=== PATIENT | female | born 1990 | race African-American/Black ===

== ENCOUNTER 2019-05-17 23:31 | Inpatient (IN) | payer MEDICAID, OTHER ==
[2019-05-17] MEDS ORDERED: PENICILLIN G-K 5 MILLION UNIT VIAL ONE (23:37)
[2019-05-17] MEDS ORDERED: RINGERS SOLUTION,LACTATED 1,000 ML IV PRN (23:39)
--- NOTE | 2019-05-17 23:57 | Admission Physical ---
Datetime Report Generated by CPN: 05/17/2019 23:56 CURRENT ADMISSION Chief Complaint: Uterine Contractions Indication for Induction: Not Applicable Admit Impression : Term, Intrauterine Admit Plan: Initiate Labor Protocol ALLERGIES Medication Allergies: No Known Allergies (12/29/2015) OBSTETRICAL HISTORY EDC: 05/23/2019 00:00 PHYSICAL EXAM General: Normal HEENT: Normal Neurologic: Normal Thyroid: Normal Heart: Normal Lungs: Normal Breast: Deferred Back: Normal Abdomen: Normal Genitourinary Exam: Normal Extremities: Normal DTRs: Normal Pelvic Type: Adequate FETUS A EGA: 39.1 INFORMED CONSENT Signature: with User ID: [email or web address]
[2019-05-17] MEDS ORDERED: PENICILLIN G POTASSIUM 5,000,000 UNIT in DEXTROSE 5%-WATER 100 ML IV ONE (23:59)
[2019-05-18] MEDS ORDERED: ACETAMINOPHEN WITH CODEINE #3 TABLET PO PRN (00:06)
[2019-05-18] MEDS ORDERED: ZOLPIDEM TARTRATE 5 MG TABLET PO PRN ×2 (00:06→00:07)
[2019-05-18] MEDS ORDERED: DIBUCAINE 1% OINTMENT 56 GM TP PRN ×2 (00:06→00:07)
[2019-05-18] MEDS ORDERED: BENZOCAINE/MENTHOL AEROSOL SPRAY 56 ML TOP PRN ×2 (00:06→00:07)
[2019-05-18] MEDS ORDERED: OXYTOCIN/NORMAL SALINE 20 UNIT/1,000 ML RTUINJ IV PRN ×2 (00:06→00:07)
[2019-05-18] MEDS ORDERED: MEASLES,MUMPS&RUBELLA VACC/PF 0.5 ML VIAL SUBCUT PRN ×2 (00:06→00:07)
[2019-05-18] MEDS ORDERED: DIPH/PERTUSS(ACELL)/TETANUS VAC/PF 0.5 ML SYR (>=10YO) IM PRN ×2 (00:06→00:07)
[2019-05-18] MEDS ORDERED: ACETAMINOPHEN 650 MG SUPP.RECT PR PRN (00:07)
[2019-05-18] MEDS ORDERED: MAGNESIUM HYDROXIDE SUSP 30 ML UDCUP PO PRN (00:07)
[2019-05-18] MEDS ORDERED: PROMETHAZINE HCL 25 MG TABLET PO PRN (00:07)
[2019-05-18] MEDS ORDERED: NA PHOS,M-B/NA PHOS,DI-BA (ADULT) 133 ML ENEMA PR PRN (00:07)
[2019-05-18] MEDS ORDERED: PSEUDOEPHEDRINE HCL 30 MG TABLET PO PRN (00:07)
[2019-05-18] MEDS ORDERED: GLYCERIN/WITCH HAZEL LEAF 1 EACH MED..WIPE TP PRN (00:07)
[2019-05-18] MEDS ORDERED: DIPHENHYDRAMINE HCL 25 MG CAPSULE PO PRN (00:07)
[2019-05-18] MEDS ORDERED: PROMETHAZINE HCL 25 MG SUPP.RECT PR PRN (00:07)
[2019-05-18] MEDS ORDERED: PROMETHAZINE HCL INJ 25 MG/1 ML VIAL IV PRN (00:07)
[2019-05-18] MEDS ORDERED: IBUPROFEN 800 MG TABLET ONE (00:15)
[2019-05-18] MEDS: ACETAMINOPHEN WITH CODEINE #3 TABLET PO PRN (01:00)
[2019-05-18] MEDS ORDERED: ACETAMINOPHEN WITH CODEINE #3 TABLET ONE (01:11)
[2019-05-18 01:15] LABS: ABSOLUTE EOSINOPHILS # (AUTO) 0.1 10^3/uL (0.0-0.6); ABSOLUTE LYMPHOCYTES (AUTO) 1.3 10^3/uL (0.5-4.7); ABSOLUTE MONOCYTES (AUTO) 0.7 10^3/uL (0.1-1.4); ABSOLUTE NEUT (AUTO) 4.3 10^3/uL (1.7-8.2); BASOPHILS % (AUTO) 0.5 % (0-2); EOSINOPHILS % (AUTO) 0.8 % (0-6); HEMATOCRIT 29.1 % (36.0-47.0); HEMOGLOBIN 9.5 g/dL (12.0-15.5); LYMPHOCYTES % (AUTO) 20.7 % (13-45); MEAN CORPUSCULAR HEMOGLOBIN 27.5 pg (27.0-33.4); MEAN CORPUSCULAR HGB CONC 32.8 g/dL (32.0-36.0); MEAN CORPUSCULAR VOLUME 84 fl (80-97); MONOCYTES % (AUTO) 11.3 % (3-13); PLATELET COUNT 218 10^3/uL (150-450); RED BLOOD COUNT 3.47 10^6/uL (3.72-5.28); RED CELL DISTRIBUTION WIDTH 14.9 % (11.5-14.0); SEGMENTED NEUTROPHILS % (AUTO) 66.7 % (42-78); TOTAL CELLS COUNTED % (AUTO) 100 %; WHITE BLOOD COUNT 6.5 10^3/uL (4.0-10.5)
[2019-05-18 02:31] LABS: RUBELLA INTERPRETATION POSITIVE
[2019-05-18 03:18] LABS: APPEARANCE,URINE SLIGHTLY-CLOUDY; BILIRUBIN,URINE NEGATIVE (NEGATIVE); COLOR,URINE YELLOW; GLUCOSE, URINE 50 mg/dL (NEGATIVE); KETONES,URINE NEGATIVE (NEGATIVE); LEUKOCYTE ESTERASE,URINE NEGATIVE (NEGATIVE); NITRITE,URINE NEGATIVE (NEGATIVE); PROTEIN,URINE 100 mg/dL (NEGATIVE); URINE SPECIFIC GRAVITY 1.014; UROBILINOGEN,URINE NEGATIVE mg/dL (<2.0)
[2019-05-18 03:32] LABS: URINE AMPHETAMINES SCREEN NEGATIVE; URINE BARBITURATES SCREEN NEGATIVE; URINE BENZODIAZEPINES SCREEN NEGATIVE; URINE COCAINE SCREEN NEGATIVE; URINE MARIJUANA (THC) SCREEN NEGATIVE; URINE METHADONE SCREEN NEGATIVE; URINE PHENCYCLIDINE SCREEN NEGATIVE
[2019-05-18 04:44] LABS: CHLAM PCR NOT DETECTED (NOT DETECT)
[2019-05-18] MEDS ORDERED: IBUPROFEN 800 MG TABLET PO SCH (06:00)
[2019-05-18] MEDS: PRENATAL VITAMIN W DHA CAPSULE PO SCH (09:28)
[2019-05-18] MEDS: FERROUS SULFATE 325 MG TABLET PO SCH ×2 (09:28→17:34)
[2019-05-18] MEDS: SENNOSIDES/DOCUSATE 8.6-50 MG 1 EACH TABLET PO SCH (09:29)
[2019-05-18] MEDS: FAMOTIDINE 20 MG TABLET PO SCH ×2 (09:29→22:42)
[2019-05-18] MEDS: DOCUSATE SODIUM 100 MG CAPSULE PO SCH ×2 (09:29→17:34)
[2019-05-18] MEDS: IBUPROFEN 800 MG TABLET PO SCH ×3 (09:36→22:42)
[2019-05-18] MEDS ORDERED: FERROUS SULFATE 325 MG TABLET PO SCH (10:00)
[2019-05-18] MEDS ORDERED: PRENATAL VITAMIN W DHA CAPSULE PO SCH (10:00)
[2019-05-18] MEDS ORDERED: DOCUSATE SODIUM 100 MG CAPSULE PO SCH (10:00)
[2019-05-18] MEDS ORDERED: SENNOSIDES/DOCUSATE 8.6-50 MG 1 EACH TABLET PO SCH (10:00)
--- NOTE | 2019-05-18 13:47 | PDOC PROGRESS REPORT ---
Subjective-OB Progress Note for:: 05/18/19 Subjective: 28yo G2 now P2 s/p ppd 1. Ambulating and voiding without difficulty. Reports pain well controlled with medication, no concerns at this time Physical Exam (OB) Vital Signs: Temp Pulse Resp BP Pulse Ox 97.8 F 62 17 109/71 100 05/18/19 08:40 05/18/19 08:40 05/18/19 08:40 05/18/19 08:40 05/18/19 08:40 Intake & Output 05/17/19 05/18/19 05/19/19 06:59 06:59 06:59 Weight 70.76 kg - General General Appearance: Appears well In distress: None - PIH/Pre-Eclampsia Headache: Absent Epigastric Pain: No Visual Changes: No - Episiotomy/Laceration Site Condition: N/A - Lochia Lochia Amount: Scant < 10 ml Lochia Color: Rubra/Red - Abdomen Description: Soft Hernia Present: No Fundal Description: Firm, Midline Fundal Height: u/u - u/2 - Respiratory Respiratory Status: No respiratory distress - Extremities Upper extremity: Normal inspection Lower extremities: Normal inspection - Neurological Cognition: Normal Orientation: AAOx4 - Psychological Associated symptoms: Normal affect, Normal mood Objective-Diagnostic Laboratory: 05/18/19 01:00 05/18/19 05/18/19 05/18/19 00:15 01:00 01:00 WBC 6.5 RBC 3.47 L Hgb 9.5 L Hct 29.1 L MCV 84 MCH 27.5 MCHC 32.8 RDW 14.9 H Plt Count 218 Seg Neutrophils % 66.7 Lymphocytes % 20.7 Monocytes % 11.3 Eosinophils % 0.8 Basophils % 0.5 Absolute Neutrophils 4.3 Absolute Lymphocytes 1.3 Absolute Monocytes 0.7 Absolute Eosinophils 0.1 Absolute Basophils 0.0 Urine Color YELLOW Urine Appearance SLIGHTLY-CLOUDY Urine pH 6.0 Ur Specific [place] 1.014 Urine Protein 100 H Urine Glucose (UA) 50 H Urine Ketones NEGATIVE Urine Blood LARGE H Urine Nitrite NEGATIVE Ur Leukocyte Esterase NEGATIVE Blood Type O POSITIVE Antibody Screen NEGATIVE Assessment and Plan(PN) - Assessment and Plan (1) Anemia affecting in third trimester Is this a current diagnosis for this admission?: Yes Plan: increase dietary iron and FeSO4 BID (2) No care in current Qualifiers: Trimester: third trimester Qualified Code(s): O09.33 - Supervision of with insufficient care, third trimester Is this a current diagnosis for this admission?: Yes Plan: production planner scheduler placed (3) Delivery normal Is this a current diagnosis for this admission?: Yes Plan: monitor for s/s of infection - Time Spent with Patient Time with patient: Less than 15 minutes Medications reviewed and adjusted accordingly: Yes - Disposition Anticipated Discharge: Home Within: within 24 hours
[2019-05-19] MEDS: ACETAMINOPHEN WITH CODEINE #3 TABLET PO PRN (00:47)
[2019-05-19] MEDS: IBUPROFEN 800 MG TABLET PO SCH ×2 (05:46→13:18)
[2019-05-19 06:47] LABS: HEMATOCRIT 25.7 % (36.0-47.0); HEMOGLOBIN 8.8 g/dL (12.0-15.5); MEAN CORPUSCULAR HEMOGLOBIN 28.4 pg (27.0-33.4); MEAN CORPUSCULAR HGB CONC 34.1 g/dL (32.0-36.0); MEAN CORPUSCULAR VOLUME 83 fl (80-97); PLATELET COUNT 211 10^3/uL (150-450); RED BLOOD COUNT 3.08 10^6/uL (3.72-5.28); RED CELL DISTRIBUTION WIDTH 14.8 % (11.5-14.0); WHITE BLOOD COUNT 8.1 10^3/uL (4.0-10.5)
--- NOTE | 2019-05-19 09:33 | PDOC DISCHARGE SUMMARY ---
Final Diagnosis Discharge Date: 05/19/19 - Final Diagnosis (1) Delivery normal Is this a current diagnosis for this admission?: Yes (2) No care in current Is this a current diagnosis for this admission?: Yes Discharge Data - Discharge Medication Home Medications: No Home Medications 05/18/19 Reason(s) for Admission: Onset of Labor Procedures: NST Intrapartum Procedure(s): Spontaneous Vaginal Delivery - Diagnosis Test Laboratory: Temp Pulse Resp BP Pulse Ox 97.9 F 69 16 127/78 H 100 05/19/19 08:11 05/19/19 08:11 05/19/19 08:11 05/19/19 08:11 05/19/19 08:11 05/18/19 05/18/19 05/19/19 00:15 01:00 06:28 RBC 3.47 L 3.08 L Hgb 9.5 L 8.8 L Hct 29.1 L 25.7 L Urine Opiates Screen NEGATIVE - Discharge information/Instructions Discharge Activity: Balance Activity w/Rest, Pelvic Rest Discharge Diet: Regular Disposition: HOME, SELF-CARE Follow up with: [facility] in: 4, Weeks
[2019-05-19] MEDS: FERROUS SULFATE 325 MG TABLET PO SCH (09:58)
[2019-05-19] MEDS: SENNOSIDES/DOCUSATE 8.6-50 MG 1 EACH TABLET PO SCH (09:58)
[2019-05-19] MEDS: DOCUSATE SODIUM 100 MG CAPSULE PO SCH (09:58)
[2019-05-19] MEDS: PRENATAL VITAMIN W DHA CAPSULE PO SCH (09:58)
[2019-05-19] MEDS: FAMOTIDINE 20 MG TABLET PO SCH (09:58)
[2019-05-19 10:35] VITALS: BP 109/71
[2019-05-19 11:22] LABS: HEPATITS B SURFACE ANTIGEN Negative (Negative)
[2019-05-19] MEDS ORDERED: MEDROXYPROGESTERONE ACET INJ 150 MG/1 ML VIAL IM ONE (11:30)
--- NOTE | 2019-05-21 09:37 | Delivery Summary ---
Del Sum A-C Datetime Report Generated by CPN: 05/21/2019 09:36 DELIVERY PERSONNEL DELIVERY PERSONNEL: [id number] Delivery Doctor:: Kevon Wiley MD Labor and Delivery Nurse:: JUAN Funes Labor and Delivery Nurse:: Nora Wynne RN Nursery Nurse:: Gwendolyn Quinones RN Nursery Nurse:: Karishma Mcintosh, TODD MATERNAL INFORMATION Delivery Anesthesia: None Medications After Delivery: Pitocin Drip 20 Units/1000ml NSS Estimated Blood Loss (ml): 200 Delivery QBL: 201 Maternal Complications: None LABOR SUMMARY EDC: 05/23/2019 00:00 No. Babies in Womb: 1 Attempted: No Labor Anesthesia: None LABOR INFORMATION Reason for Induction: Not Applicable Onset of Labor: 05/17/2019 22:30 Complete Dilatation: 05/17/2019 23:42 Oxytocin: N/A Group B Beta Strep: unknown Antibiotics # of Doses: 1 Antibiotics Time of Last Dose: 8 Name of Antibiotic Given: Penicillin Steroids Given: None Reason Steroids Not Administered: Not Applicable MEMBRANES Membranes Rupture Method: Spontaneous Rupture of Membranes: 05/17/2019 23:40 Length of Rupture (hr): 0.13 Amniotic Fluid Color: Clear Amniotic Fluid Amount: Moderate Amniotic Fluid Odor: None STAGES OF LABOR Stage 1 hr: 1 Stage 1 min: 12 Stage 2 hr: 0 Stage 2 min: 6 Stage 3 hr: 24 Stage 3 min: 11 Total Time in Labor hr: 25 Total Time in Labor min: 29 VAGINAL DELIVERY Episiotomy: None Laceration #1: None Laceration Extension #1: N/A Sponge Count Correct: N/A Sharps Count Correct: N/A CSECTION DELIVERY Primary Indication: N/A Secondary Indication: N/A CSection Incision: N/A BABY A INFORMATION Infant Delivery Date/Time: 05/17/2019 23:48 Method of Delivery: Vaginal Born in Route : No : N/A Forceps: N/A Vacuum Extraction: N/A Shoulder Dystocia : No PRESENTATION/POSITION BABY A Presentation: Cephalic Cephalic Presentation: Vertex Vertex Position: Right Occipital Anterior Breech Presentation: N/A PLACENTA INFORMATION BABY A Placenta Delivery Time : 05/18/2019 23:59 Placenta Method of Delivery: Spontaneous Placenta Status: Delivered SCORES BABY A Heart Rate 1 min: >100 bpm Resp Effort 1 min: Good Cry Reflex Irritability 1 min: Cough or Sneeze or Pulls Away Muscle Tone 1 min: Active Motion Color 1 min: Body [place], Extremities Blue Resuscitation Effort 1 min: Tactile Stimulation SCORE 1 MIN: 9 Heart Rate 5 min: >100 bpm Resp Effort 5 min: Good Cry Reflex Irritability 5 min: Cough or Sneeze or Pulls Away Muscle Tone 5 min: Active Motion Color 5 min: Body [place], Extremities Blue Resuscitation Effort 5 min: Tactile Stimulation SCORE 5 MIN: 9 INFORMATION BABY A Gestational Age at Delivery: 39.2 Gestational Status: Full Term- 39- 40.6 Weeks Outcome : Liveborn Condition : Stable Infant Sex: Female IDENTIFICATION BABY A Verification Date/Time: 05/17/2019 00:43 ID Band Number: [id number] Mother's Name Verified: Yes Infant RN Verifying Infant: Rip Pastor, RN D. Vitaance, RN WEIGHT/LENGTH BABY A Birthweight (gm): 2801 Weight (lb): 6 Weight (oz): 3 Infant Length (in): 18.50 Infant Length (cm): 46.99 CORD INFORMATION BABY A No. Cord Vessels: 3 Nuchal Cord : N/A Nuchal Cord- Other: cord wrapped on left foot Cord Blood Taken: Yes-For Eval (Mom's Blood Type - or O+) Suction: Mouth; Nose ASSESSMENT BABY A Complications: Other Complications- Other: terminal mec Physical Findings at Delivery: Within Normal Limits Respirations: Appears Normal Skin to Skin: Yes Skin to Skin Time (min): 20 Lens Examiner/ALS Called : No Transferred To: Nursery BABY B INFORMATION : N/A SIGNATURES Signature: with User ID: [email or web address]
== END 2019-05-19 16:20 | disposition home or self-care (01) | DRG 807 ==
LOC: LC 23:31 → LR 23:39 → 2S 05-18 02:10
PROVIDERS: ADMIT Obstetrics & Gynecology Gynecology; ATTEND Obstetrics & Gynecology Gynecology
PROC: 10E0XZZ Delivery of Products of Conception, External Approach (ICD-10-PCS; 2019-05-17)
PROC: 3E0234Z Introduction of Serum, Toxoid and Vaccine into Muscle, Percutaneous Approach (ICD-10-PCS; principal; 2019-05-19)
DX: O99.02 Anemia complicating childbirth (principal); Z37.0 Single live birth; O69.2XX0 Labor and delivery complicated by other cord entanglement, with compression, not applicable or unspecified; D64.9 Anemia, unspecified; Z3A.39 39 weeks gestation of pregnancy; Z23 Encounter for immunization
CPT/HCPCS: 36415; 80307; 81005; 85025; 85027; 86592; 86701; 86762; 86850; 86900; 86901; 87340; 87491; 87591; 90715; J1050; J2540; J3490; J7060